=== PATIENT | female | born 1980 | race Caucasian/White ===

== ENCOUNTER 2017-11-13 07:25 | Emergency (ER) | payer BC ==
--- NOTE | 2017-11-13 08:05 | ED ---
- HPI Summary HPI Summary: Pt. is a 37 y.o female who presents to the emergency department for vaginal bleeding in early . Pt. is currently 9.5 weeks . A0. Pt. notes she has been having mild vaginal pink spotting over the last few days that progressed today to heavier red blood with clots. Pt. notes mild lower abd. cramping. She has not yet had a confirmed IUP. Past medical hx of HTN. Symptoms are moderate in severity. No current modifying factors. - History of Current Complaint Chief Complaint: EDOBProblems Stated Complaint: BLEEDING/9 WKS PREG Time Seen by Provider: 11/13/17 07:49 Hx Obtained From: Patient Pain Intensity: 0 - Allergies/Home Medications Allergies/Adverse Reactions: Allergies Allergy/AdvReac Type Severity Reaction Status Date / Time metformin Allergy See Comment Verified 11/13/17 07:31 Penicillins Allergy Hives Verified 11/13/17 07:31 Home Medications: Home Medications Albuterol HFA INHALER* [Ventolin HFA Inhaler*] 1 puff INH DAILY PRN 11/13/17 [ History Confirmed 11/13/17] Labetalol HCl 50 mg PO TID 11/13/17 [History Confirmed 11/13/17] Pnv No.103/Folic/Om3s/Fish Oil [ Gummies] 1 each PO BID 11/13/17 [ History Confirmed 11/13/17] PMH/Surg Hx/FS Hx/Imm Hx Previously Healthy: Yes - Immunization History Immunizations Up to Date: Yes Infectious Disease History: No Infectious Disease History: Denies: Traveled Outside the [place] in Last 30 Days - Family History Known Family History: Positive: Other - Noncontributory - Social History Occupation: Works From/At Home Lives: With Family Alcohol Use: None Substance Use Type: Reports: None Smoking Status (MU): Never Smoked Tobacco Review of Systems Constitutional: Negative Negative: Fever, Chills Eyes: Negative ENT: Negative Cardiovascular: Negative Respiratory: Negative Positive: Abdominal Pain. Negative: Vomiting, Diarrhea, Nausea Positive: other - vaginal bleeding All Other Systems Reviewed And Are Negative: Yes Physical Exam - Physical Exam Triage Information Reviewed: Yes Vital Signs Reviewed: Yes Appearance: Positive: Well-Appearing - Pt. sitting on bed in NAD. S.O. present. Skin: Positive: Warm, Dry Head/Face: Positive: Normal Head/Face Inspection Eyes: Positive: Normal, EOMI Neck: Positive: Supple Respiratory/Lung Sounds: Positive: Clear to Auscultation, Breath Sounds Present Cardiovascular: Positive: Normal, RRR Abdomen Description: Positive: Other: - Morbidly obese. Soft and nontender throughout. Neurological: Positive: Normal, CN Intact II-III Psychiatric: Positive: Affect/Mood Appropriate Diagnostics - Vital Signs Vital Signs Temp Pulse Resp BP Pulse Ox 11/13/17 07:26 97.9 F 88 16 163/97 98 - Laboratory Result Diagrams: 11/13/17 08:22 Lab Statement: Any lab studies that have been ordered have been reviewed, and results considered in the medical decision making process. Course/Dx - Course Course Of Treatment: Pt. presenting with vaginal bleeding in early . She is well appearaing with stable VS. Will obtain labs and u/s. CBC stable H and H. Beta quant 1971. Blood type O+. U/S transvaginally is note showing any evidence of . Left ovary is unremarkable, but right ovary is not identified, reading per radiology. Pt. has mild bleeding at this time on exam. She does not prior to coming to ER she passed a large about of clots and possible tissue material. Suspect pt. likely had a complete miscarriage. Results discussed. Did discuss the possibility for possible ectopic given that right ovary not seen on u/s. Pt. has minimal pelvic pain. She has an apt. with OB tomorrow and advised she will need repeat beta quant and u/s. To return to ER for increased bleeding, pain or if concerned. Can take tylenol or motrin as directed. Pt. and s.o understand and agree with plan. - Differential Diagnosis/HQI/PQRI: Incomplete , Missed , Spontaneous , Threatened , Ectopic , Early - Diagnoses Provider Diagnoses: Complete miscarriage Discharge - Sign-Out/Discharge Documenting (check all that apply): Patient Departure - Discharge Plan Condition: Good Disposition: HOME Patient Education Materials: Miscarriage (ED) Referrals: Alvin PINK,APRYL Chawla [Primary Care Provider] - Donis Salcedo MD [Medical Doctor] - Additional Instructions: Schedule an appointment with your OB for recheck Increase fluids and rest Tylenol or Motrin for pain as directed Return to ER for severe bleeding or pain - Billing Disposition and Condition Condition: GOOD Disposition: Home
[2017-11-13 08:29] LABS: ABS Basophils 0 10^3/ul (0-0.2); ABS Eosinophils 0.4 10^3/ul (0-0.6); ABS Lymphocytes 1.5 10^3/ul (1.0-4.8); ABS Monocytes 0.4 10^3/ul (0-0.8); ABS Neutrophils 5.9 10^3/ul (1.5-7.7); ABS Nucleated RBC 0 10^3/ul; Eosinophil % 4.4 % (0-6); Hematocrit 38 % (35-47); Hemoglobin 12.6 g/dl (12.0-16.0); Lymphocyte % 18.3 % (25-47); Mean Corpuscular HGB Conc 34 g/dl (31-36); Mean Corpuscular Hemoglobin 27 pg (27-31); Mean Corpuscular Volume 80 fL (80-97); Mean Platelet Volume 7.1 um3 (7.4-10.4); Nucleated Red Blood Cells % 0.1; Platelet Count 233 10^3/ul (150-450); Red Blood Count 4.67 10^6/ul (4.00-5.40); Red Cell Distribution Width 16 % (10.5-15); White Blood Count 8.2 10^3/ul (3.5-10.8)
--- NOTE | 2017-11-13 09:42 | RAD ---
Indication: Vaginal bleeding. Real-time sonography of the pelvis was performed. There is no evidence of intrauterine noted. No pole is identified. The uterus measures 8.8 x 4.1 x 4.2 cm. Endometrial echo measures 0.7 cm. Right ovary is not visualized. Left ovary measures 2.1 x 1.8 x 1.8 cm. IMPRESSION: No evidence of intrauterine is noted. Right ovary is not visualized.
[2017-11-13 10:23] VITALS: BP 145/94
== END 2017-11-13 10:23 | disposition home or self-care (01) ==
LOC: ED 07:25
DX: O03.80 Unspecified complication following complete or unspecified spontaneous abortion (principal); N93.9 Abnormal uterine and vaginal bleeding, unspecified; R10.9 Unspecified abdominal pain
CPT/HCPCS: 36415; 76817; 84702; 85025; 86900; 86901; 99282